=== PATIENT | female | born 1980 | race Caucasian/White ===

== ENCOUNTER 2017-04-11 10:23 | Outpatient (RCR) | payer MEDICAID, SELFPAY | END 2017-04-26 23:59 | LOC: NS 10:23 | PROVIDERS: Family Provider Family Medicine; PCP Family Medicine | DX: E66.9 Obesity, unspecified (principal); Z68.36 Body mass index [BMI] 36.0-36.9, adult; Z71.3 Dietary counseling and surveillance | CPT/HCPCS: 97803 ==

== ENCOUNTER 2017-05-22 09:30 | Outpatient (RCR) | payer MEDICAID, SELFPAY | END 2017-05-24 23:59 | LOC: NS 09:30 | PROVIDERS: Family Provider Family Medicine; PCP Family Medicine | DX: E66.9 Obesity, unspecified (principal); Z68.36 Body mass index [BMI] 36.0-36.9, adult; Z71.3 Dietary counseling and surveillance | CPT/HCPCS: 97803 ==

== ENCOUNTER → 2017-05-31 16:53 | Outpatient (CLI) | payer MEDICAID, SELFPAY ==
[2017-06-07 11:30] LABS: HPV HC, High Risk Negative (Negative)
[2017-06-07 11:37] LABS: HPV Reflexed? YES, CHARGE PATIENT
== END ==
PROVIDERS: Visit Provider Obstetrics & Gynecology
DX: Z12.4 Encounter for screening for malignant neoplasm of cervix (principal)
CPT/HCPCS: 87624; 88175; G0145

== ENCOUNTER 2017-06-20 09:30 | Outpatient (RCR) | payer MEDICAID, SELFPAY | END 2017-06-24 23:59 | LOC: NS 09:30 | PROVIDERS: Family Provider Family Medicine; PCP Family Medicine | DX: E66.9 Obesity, unspecified (principal); Z68.36 Body mass index [BMI] 36.0-36.9, adult; Z71.3 Dietary counseling and surveillance | CPT/HCPCS: 97803 ==

== ENCOUNTER 2017-07-17 09:30 | Outpatient (RCR) | payer MEDICAID, SELFPAY | END 2017-07-24 23:59 | LOC: NS 09:30 | PROVIDERS: Family Provider Family Medicine; PCP Family Medicine | DX: E66.9 Obesity, unspecified (principal); Z68.36 Body mass index [BMI] 36.0-36.9, adult; Z71.3 Dietary counseling and surveillance | CPT/HCPCS: 97803 ==

== ENCOUNTER 2017-08-14 09:30 | Outpatient (RCR) | payer MEDICAID, SELFPAY | END 2017-08-24 23:59 | LOC: NS 09:30 | PROVIDERS: Family Provider Family Medicine; PCP Family Medicine | DX: E66.9 Obesity, unspecified (principal); Z68.36 Body mass index [BMI] 36.0-36.9, adult; Z71.3 Dietary counseling and surveillance; M53.3 Sacrococcygeal disorders, not elsewhere classified | CPT/HCPCS: 72170; 72220; 97802; 97803 ==

== ENCOUNTER → 2017-08-14 10:23 | Outpatient (CLI) | payer MEDICAID, SELFPAY ==
--- NOTE | 2017-08-14 10:27 | RAD_ITS ---
STUDY: X-RAY - SACRUM/COCCYX REASON FOR EXAM: Female, 37 years old. Pelvic pain. TECHNIQUE: 4 view(s) of the sacrum and coccyx were obtained. COMPARISON: None. FINDINGS: Normal bilateral sacroiliac joints. Normal visualized sacral ala and fused sacral bodies. There is an anterior angulation of the coccygeal segments. Normal coccygeal segments. This space narrowing at the L5-S1 level. IUD is seen within the pelvis. RAD/Sacrum-Coccyx min 2 Views IMPRESSION: No acute abnormality is seen. An IUD is seen within the pelvis. Electronically Signed: José Miguel Gabriel MD at 9:52 EDT Tel [phone], Service support ,
--- NOTE | 2017-08-14 10:27 | RAD_ITS ---
STUDY: X-RAY - PELVIS REASON FOR EXAM: Female, 37 years old. Pelvic pain and sacral pain. TECHNIQUE: One view of the pelvis was obtained. COMPARISON: None. FINDINGS: There is a non-specific bowel gas pattern. IUD is seen within the pelvis. There is narrowing with cortical sclerosis and osteophyte formation of the sacroiliac joint consistent with degenerative osteoarthritic changes. Normal visualized bilateral superior and inferior pubic rami. Normal pubic symphysis. Normal ischial tuberosities. Normal visualized right femoral head. Normal right acetabulum. Normal right hip joint. Normal visualized left femoral head. Normal left acetabulum. Normal left hip joint. RAD/Pelvis 1 or 2 Views IMPRESSION: Degenerative changes of the sacroiliac joints worse on the left side. IUD is seen within the pelvis. Electronically Signed: José Miguel Gabriel MD at 15:49 EDT Tel [phone], Service support ,
== END ==
PROVIDERS: Family Provider Family Medicine; PCP Family Medicine
DX: M53.3 Sacrococcygeal disorders, not elsewhere classified (principal)
CPT/HCPCS: 72170; 72220

== ENCOUNTER 2017-09-06 08:16 | Outpatient (RCR) | payer MEDICAID, SELFPAY | END 2017-09-23 23:59 | LOC: NS 08:16 | PROVIDERS: Family Provider Family Medicine; PCP Family Medicine | DX: E66.9 Obesity, unspecified (principal); Z68.36 Body mass index [BMI] 36.0-36.9, adult; Z71.3 Dietary counseling and surveillance | CPT/HCPCS: 97803 ==

== ENCOUNTER 2017-10-23 09:30 | Outpatient (RCR) | payer MEDICAID, SELFPAY | END 2017-10-24 23:59 | disposition home or self-care (01) | LOC: NS 09:30 | PROVIDERS: Family Provider Family Medicine; PCP Family Medicine | DX: E66.9 Obesity, unspecified (principal); Z68.36 Body mass index [BMI] 36.0-36.9, adult; Z71.3 Dietary counseling and surveillance | CPT/HCPCS: 97803 ==

== ENCOUNTER 2017-11-21 09:30 | Outpatient (RCR) | payer MEDICAID, SELFPAY | END 2017-11-24 23:59 | LOC: NS 09:30 | PROVIDERS: Family Provider Family Medicine; PCP Family Medicine | DX: E66.9 Obesity, unspecified (principal); Z68.36 Body mass index [BMI] 36.0-36.9, adult; Z71.3 Dietary counseling and surveillance | CPT/HCPCS: 97803 ==

== ENCOUNTER → 2017-11-29 13:47 | Outpatient (CLI) | payer MEDICAID, SELFPAY ==
[2017-12-06 12:12] LABS: HPV Reflexed? NOT INDICATED
== END ==
PROVIDERS: Visit Provider Obstetrics & Gynecology
DX: Z12.4 Encounter for screening for malignant neoplasm of cervix (principal); R87.610 Atypical squamous cells of undetermined significance on cytologic smear of cervix (ASC-US)
CPT/HCPCS: 88175; G0145

== ENCOUNTER 2017-12-19 09:00 | Outpatient (RCR) | payer MEDICAID, SELFPAY | END 2017-12-24 23:59 | LOC: NS 09:00 | PROVIDERS: Family Provider Family Medicine; PCP Family Medicine | DX: E66.9 Obesity, unspecified (principal); Z68.36 Body mass index [BMI] 36.0-36.9, adult; Z71.3 Dietary counseling and surveillance | CPT/HCPCS: 97803 ==

== ENCOUNTER 2018-01-16 09:00 | Outpatient (RCR) | payer MEDICAID, SELFPAY | END 2018-01-24 23:59 | LOC: NS 09:00 | PROVIDERS: Family Provider Family Medicine; PCP Family Medicine | DX: E66.9 Obesity, unspecified (principal); Z68.36 Body mass index [BMI] 36.0-36.9, adult; Z71.3 Dietary counseling and surveillance | CPT/HCPCS: 97802; 97803 ==

== ENCOUNTER → 2018-01-18 11:55 | Outpatient (CLI) | payer MEDICAID, SELFPAY ==
--- NOTE | 2018-01-18 12:17 | RAD_ITS ---
STUDY: X-RAY - LUMBAR SPINE REASON FOR EXAM: Female, 37 years old. Acute low back pain. TECHNIQUE: 12/15/2014 view(s) of the lumbar spine were obtained. COMPARISON: None FINDINGS: Normal lumbar lordosis. There is no substantial scoliosis. There is a normal alignment of the vertebrae. Again seen is transitional vertebrae at S1. Normal vertebral bodies and endplates. Stable degenerative disc disease at S1-S2. Otherwise normal disc space heights. There is no demonstrated fracture. The soft tissue structures are unremarkable. RAD/Lumbar Spine 2 or 3 Views IMPRESSION: No change or acute abnormality. Electronically Signed: Jhonatan Saunders MD at 19:15 EDT , Service support ,
== END ==
DX: M54.5 Low back pain (principal)
CPT/HCPCS: 72100

== ENCOUNTER 2018-01-30 09:58 | Outpatient (RCR) | payer MEDICAID, SELFPAY | END 2018-02-23 23:59 | LOC: NS 09:58 | DX: E66.9 Obesity, unspecified (principal); Z68.36 Body mass index [BMI] 36.0-36.9, adult; Z71.3 Dietary counseling and surveillance | CPT/HCPCS: 97803 ==

== ENCOUNTER 2018-02-09 09:00 | Outpatient (RCR) | payer MEDICAID, SELFPAY ==
--- NOTE | 2018-01-09 14:00 | HP.PTEVAL_ITS ---
Patient's Visit Information ROJAS CHOUDHARY is a 37 year old F referred to Physical Therapy by Eliana Bolanos DO with a diagnosis of LBP. Date of Evaluation: 01/09/18 Physical Therapist: Jeremie Acuña PT, - Visit Plan Frequency: 2-3x /Week Duration: 4 Weeks Plan: Postural edu, REIL, core stab ex's, and HEP - Subjective Subjective: Pt reports her LB has been sore for one month. Pt reports she helped her carry a treadmill in the house, and her back has been sore since. Pt reports she went to the foot doctor 2 weeks ago, and had lifts put in her shoes. Pt reports the pain has been worse ever since. Pt reports she has had xrays in the past which revealed OA throughout the spine. Pt reports occasional R glute radiculopathy if she straightens out her L leg. Pt notes sleep difficulty secondary to pain. Pt reports prolonged standing and sitting increases her pain. sitting up straight also increases her pain. 5/10 pain sitting her at rest, 9/10 at worst - Pain LBP Pain Intensity (Out of 10): 5 Pain Intensity Range: 9 - Objective Neuro: B LE sensation is WNL to light touch. B patellar reflex= 2/3. MMT: R hip flexion 3/5 throughout. All other B LE MMT= 5/5 throughout. ROM: Pt is mederately limited with L/S ext which provokes pain. All other movements are WNL. Repeated movements: Repeated flexion in standing 10x3 has NE on pain. Repeated ext in standing 10x3 - Goals Goal 1:: Decrease LBP x 50% to aid with sleep Goal Time Frame: 4-6 Weeks Goal 2:: Increase L/S ext ROM x 1 grade to aid with decreasing LBP Goal Time Frame: 4-6 Weeks Goal 3:: Decrease the F and I of R glute radiculopathy by 50% to aid with increasing holli for standing Goal Time Frame: 4-6 Weeks Goal 4:: I with HEP Goal Time Frame: 4-6 Weeks - Rehabilitation Potential Physical Therapy Diagnosis: Pt has LBP, decreased L/S ROM, and diff with sleep secondary to a L/S disc derrangement Rehabilitation Potential: Good - Anticipated Interventions Patient/Client Instruction: Educate patient on: Condition, Plan of Care For the Purpose of:: To improve self management Therapeutic Exercise to Include: Strength training, Endurance training, Body mechanics, Postural training, Dynamic Lumbar Stabilization, Duy Exercises For the Purpose of:: To decrease pain, To increase ROM, To improve muscle performance and motor function Cryotherapy (ice pack, ice massage): Yes Thermo therapy (hot pack): Yes For the Purpose of:: To decrease pain Thank you for the opportunity to evaluate your patient. For Medicare and Medicare HMO plans, please review the plan of care and approve it. It will need to be FAXED BACK to us at [phone] for Medicare purposes. Please let me know if there are questions or concerns regarding this plan of care. Physician Signature: __Date:
--- NOTE | 2018-04-17 14:40 | HP.PT.NRP ---
HP - Discharge Summary (1) - Patient Information ROJAS CHOUDHARY was seen in my office for initial evaluation on 01/09/18. The following Plan of Care was established for this patient: Initial Frequency: 2-3x /Week Initial Duration: 4 Weeks - Anticipated Interventions Patient/Client Instruction: Educate patient on: Condition, Plan of Care For the Purpose of:: To improve self management Therapeutic Exercise to Include: Strength training, Endurance training, Body mechanics, Postural training, Dynamic Lumbar Stabilization, Duy Exercises For the Purpose of:: To decrease pain, To increase ROM, To improve muscle performance and motor function Cryotherapy (ice pack, ice massage): Yes Thermo therapy (hot pack): Yes For the Purpose of:: To decrease pain This patient was last seen in our office . Pertinent comments regarding their Physical therapy will appear below: Pt was treated for 14 PT visits for her LBP through the date of 02/09/18. Pt has not returned through todays date and is therefore discontinued at this time. At this point I will be discontinuing this patient from physical therapy. I would be happy to see this patient again in the future if found appropriate by the physician. Thank you! Jeremie Acuña, PT, ATC
== END 2018-02-09 19:00 | disposition home or self-care (01) ==
LOC: PT 09:00
DX: M54.5 Low back pain (principal); E66.9 Obesity, unspecified; Z68.35 Body mass index [BMI] 35.0-35.9, adult; Z71.3 Dietary counseling and surveillance
CPT/HCPCS: 97110; 97162; 97803

== ENCOUNTER 2018-03-13 09:30 | Outpatient (RCR) | payer MEDICAID, SELFPAY | END 2018-03-26 23:59 | LOC: NS 09:30 | DX: E66.9 Obesity, unspecified (principal); Z68.35 Body mass index [BMI] 35.0-35.9, adult; Z71.3 Dietary counseling and surveillance | CPT/HCPCS: 97803 ==

== ENCOUNTER 2018-04-17 11:30 | Outpatient (RCR) | payer MEDICAID, SELFPAY | END 2018-04-26 23:59 | LOC: NS 11:30 | DX: E66.9 Obesity, unspecified (principal); Z68.35 Body mass index [BMI] 35.0-35.9, adult; Z71.3 Dietary counseling and surveillance | CPT/HCPCS: 97803 ==

== ENCOUNTER 2018-07-03 12:17 | Outpatient (RCR) | payer MEDICAID, SELFPAY | END 2018-07-24 23:59 | LOC: NS 12:17 | DX: E66.9 Obesity, unspecified (principal); Z68.35 Body mass index [BMI] 35.0-35.9, adult; Z71.3 Dietary counseling and surveillance | CPT/HCPCS: 97803 ==

== ENCOUNTER → 2018-09-06 13:31 | Outpatient (CLI) | payer MEDICAID, SELFPAY ==
[2018-09-12 11:31] LABS: HPV Reflexed? NOT INDICATED
== END ==
PROVIDERS: Visit Provider Obstetrics & Gynecology
DX: Z12.4 Encounter for screening for malignant neoplasm of cervix (principal)
CPT/HCPCS: 88175; G0145

== ENCOUNTER → 2019-09-19 14:41 | Outpatient (CLI) | payer MEDICAID, SELFPAY | PROVIDERS: Visit Provider Obstetrics & Gynecology | DX: Z12.4 Encounter for screening for malignant neoplasm of cervix (principal); Z11.3 Encounter for screening for infections with a predominantly sexual mode of transmission ==

== ENCOUNTER 2020-01-14 13:14 | Outpatient (RCR) | payer MEDICAID, SELFPAY | END 2020-01-14 23:59 | disposition home or self-care (01) | LOC: NS 13:14 | DX: Z71.3 Dietary counseling and surveillance (principal); E66.01 Morbid (severe) obesity due to excess calories; Z68.42 Body mass index [BMI] 45.0-49.9, adult | CPT/HCPCS: 97802 ==

== ENCOUNTER 2024-03-13 08:39 | Day surgery (SDC) | payer MEDICAID, SELFPAY ==
[2024-03-13] VITALS (7 sets, daily range): BP systolic 105–129; BP diastolic 64–80; PULSE 70–85; RESP 14–16; TEMP 35.9–36.4; O2SAT 95–100; BMI 46.7
--- NOTE | 2024-03-13 08:47 | PCM.PRE.AN2 ---
ASA Classification* ASA Classification ASA Classification: 2 Assessment & Plan Anesthesia* Anesthesia Assessment Anesthesia Assessment: Discussed sedation and/or anesthesia options, risks, benefits, and alternatives with patient/parents/legal guardian/POA. Questions invited. The patient/parents/legal guardian/POA seems to understand and agrees to proceed with anesthesia plan. Reviewed the physical assessment, medical history, allergy history and patient home medications list prior to surgery/procedure/anesthetic and documented any changes. Performed airway and anesthesia risk assessments. Anesthesia Type Anesthesia Type: MAC Anesthesia Focused Assessment* Airway Assessment Mouth opens: >3 cm Mallampati Score: II Focused Labs Anesthesia Preop lab: CBC WBC 5.1 K/mm3 (4.4-11.0) 05/07/15 09:34 RBC 5.08 M/mm3 (4.2-5.4) 05/07/15 09:34 Hgb 15.1 g/dl (12.0-15.0) H 05/07/15 09:34 Hct 46.0 % (37-47) 05/07/15 09:34 Plt Count 221 K/mm3 (150-450) 05/07/15 09:34 CHEMISTRY Potassium 3.8 mmol/L (3.5-5.1) 05/07/15 09:34 Sodium 140 mmol/L (136-145) 05/07/15 09:34 BUN 8 mg/dL (7-18) 05/07/15 09:34 Creatinine 0.92 mg/dL (0.55-1.20) 05/07/15 09:34 Glucose 101 mg/dL (70-110) 05/07/15 09:34 POC Glucose 84 mg/dL (70-110) 09/01/14 06:19 TSH 1.28 uIU/mL (0.358-3.74) 05/06/15 14:52 COAG PT 11.9 SECONDS (11.7-14.9) 09/01/14 05:55 HCG, Quant < 1 mIU/mL (<9 non-preg) 07/26/12 13:17 Urine Test Positive Negative H 12/30/13 10:50 Pre-Assessment Diagnosis/Proposed Procedure Planned Operative Procedure(s): CSCOPE OA Anesthesia History Anesthesia History - scientific informatics leader: Anesthesia History - scientific informatics leader Hx Hospitalization No 03/11/24 15:14 Any Problems With Anesthesia No 03/11/24 15:14 Cholinesterase deficiency No 03/11/24 15:14 You/Your Family Experience No 03/11/24 15:14 fever (hyperthermia) with Relationship Recent Exposure to Contagious No 12/30/13 11:01 Disease Does patient have nerve No 03/11/24 15:14 stimulator Patient instructed to have device shut off --Does patient have Pacemaker or ICD? When Was Last Pacemaker Check QUESTION #4 FULL TEXT: You/Your Family Experience fever (hyperthermia) with Anesthesia Last Oral Intake Last Oral intake: Last Oral Intake NPO since Meds taken in AM with sips of water? Meds patient instructed to take am of surgery PONV PONV - scientific informatics leader: PONV - scientific informatics leader Female Yes 03/11/24 15:14 HX of Motion Sickness No 03/11/24 15:14 HX of N/V After Surgery No 03/11/24 15:14 Non-Smoker Yes 03/11/24 15:14 Duration of Surgery greater No 03/11/24 15:14 than 60 minutes Number of Risk Factors 2 03/11/24 15:14 PONV Score Moderate Risk 03/11/24 15:14 Height & Weight Height & Weight: Anesthesia: Height & Weight Height 5 ft 10.5 in 01/25/24 13:23 Respiratory Assessment Respiratory Assessment - scientific informatics leader: Respiratory Tract Infection Hx - scientific informatics leader Hx Respiratory Tract Infection No 03/11/24 15:14 STOP Sleep Apnea STOP Sleep Apnea - scientific informatics leader: STOP Sleep Apnea - scientific informatics leader Hx Hypertension Yes: NO MEDS FOR 20 YRS 03/11/24 15:14 Hx Sleep Apnea No 03/11/24 15:14 CPAP No 12/26/13 09:17 BIPAP No 12/26/13 09:17 Do you snore loudly (louder No 03/11/24 15:14 than talking or can be heard Do you often feel tired/ Yes 03/11/24 15:14 fatigued/ sleepy during daytime? Has anyone observed you stop No 03/11/24 15:14 breathing during sleep? STOP Results Positive 03/11/24 15:14 QUESTION #5 FULL TEXT : Do you snore loudly (louder than talking or can be heard through closed doors)? 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 Specify any problems Hx of Preganancy in last 3 No 03/11/24 15:14 Months Nurse Filling Out Transfusion DSCHRIBER 03/11/24 15:14 & Questions: Date: 03/11/24 03/11/24 15:14 Time: 15:16 03/11/24 15:14 Patient unable to answer at this time (ie. confused, unrespo /Reproduction History /Reproductive History - scientific informatics leader: /Reproductive Hx- scientific informatics leader Hx Now No 03/11/24 15:14 Gestational Age (in weeks): EDC: Hx Hx Para Hx Section SAB No 03/11/24 15:14 PFSH Medical History Wears contact lenses Diabetes Arthritis Low iron Injury of back Back pain Heartburn Non-smoker Shortness of breath on exertion History of pain when walking Hypertension Sacralization of lumbar vertebra Anxiety PAC (premature atrial contraction) Moderate recurrent major depression Hyperlipidemia Home Medications ?Medication ?Instructions ?Recorded ?Last Taken ?Type ferrous sulfate 325 mg (65 mg 325 mg PO DAILY@0800 08/11/14 03/10/24 History iron) tablet acetaminophen 650 mg 1,300 mg PO Q8H 01/25/24 Unknown History tablet,extended release (Arthritis Pain Relief (acetaminophen) ER) cholecalciferol (vitamin D3) 50 50 mcg PO QDAY 01/25/24 Unknown History mcg (2,000 unit) capsule fexofenadine 60 mg tablet (Nakia 60 mg PO QDAY 01/25/24 Unknown History Allergy) ibuprofen 200 mg tablet 200 mg PO Q6H PRN pain 01/25/24 Unknown History levonorgestrel (Mirena) 1 device intrauterine ONCE 01/25/24 Unknown History melatonin 5 mg tablet 5 mg PO HS 01/25/24 Unknown History multivitamin (Daily Multi-Vitamin 1 tab PO QAM 01/25/24 Unknown History tablet) nystatin 100,000 unit/gram topical 1 applic topical BID PRN SKIN 01/25/24 Unknown History powder vortioxetine 20 mg tablet 20 mg PO QDAY 01/25/24 Unknown History (Trintellix) Allergy/AdvReac Type Severity Reaction Status Date / Time azithromycin (From Zithromax) Allergy Rash Verified 03/11/24 15:13 Family History Father Diabetes Heart disease Mother Hypertension Arthritis Surgical History Hx of section Hx of cholecystectomy History of gastric bypass Hx of knee surgery Hx of carpal tunnel repair Social History household members: spouse and children current occupational status: unemployed Smoking Status: Never smoker alcohol intake: never substance use type: does not use Review of Systems (Anesthesia) ROS Narrative System reviewed and no additional complaints, except as documented.
--- NOTE | 2024-03-13 09:04 | PCM.HP.STD ---
HPI - General General Date of Admission: 03/13/24 Date of Service: 03/13/24 Chief Complaint: Screening colonoscopy HPI Narrative ROJAS CHOUDHARY, is a 44 F who presents today for screening colonoscopy. She has never had a colonoscopy in the past. She is not having abdominal pain, cramping, chest pain or shortness of breath. She does not take any medicines on a daily basis. FORMERLY [facility] Medical History Wears contact lenses Diabetes Arthritis Low iron Injury of back Back pain Heartburn Non-smoker Shortness of breath on exertion History of pain when walking Hypertension Sacralization of lumbar vertebra Anxiety PAC (premature atrial contraction) Moderate recurrent major depression Hyperlipidemia Home Medications ?Medication ?Instructions ?Recorded ?Last Taken ?Type ferrous sulfate 325 mg (65 mg 325 mg PO DAILY@0800 08/11/14 03/10/24 History iron) tablet acetaminophen 650 mg 1,300 mg PO Q8H 01/25/24 03/13/24 History tablet,extended release (Arthritis Pain Relief (acetaminophen) ER) cholecalciferol (vitamin D3) 50 50 mcg PO QDAY 01/25/24 Unknown History mcg (2,000 unit) capsule fexofenadine 60 mg tablet (Nakia 60 mg PO QDAY 01/25/24 Unknown History Allergy) ibuprofen 200 mg tablet 200 mg PO Q6H PRN pain 01/25/24 Unknown History levonorgestrel (Mirena) 1 device intrauterine ONCE 01/25/24 Unknown History melatonin 5 mg tablet 5 mg PO HS 01/25/24 Unknown History multivitamin (Daily Multi-Vitamin 1 tab PO QAM 01/25/24 Unknown History tablet) nystatin 100,000 unit/gram topical 1 applic topical BID PRN SKIN 01/25/24 Unknown History powder vortioxetine 20 mg tablet 20 mg PO QDAY 01/25/24 Unknown History (Trintellix) Allergy/AdvReac Type Severity Reaction Status Date / Time azithromycin (From Zithromax) Allergy Rash Verified 03/13/24 08:55 Family History Father Diabetes Heart disease Mother Hypertension Arthritis Surgical History Hx of section Hx of cholecystectomy History of gastric bypass Hx of knee surgery Hx of carpal tunnel repair Social History household members: spouse and children current occupational status: unemployed Smoking Status: Never smoker alcohol intake: never substance use type: does not use ROS Constitutional Constitutional: Denies fatigue, fever(s), poor appetite, weight gain or weight loss Gastrointestinal Gastrointestinal: Denies belching, bloating, change in bowel habits, change in stool character, chewing difficulty, coffee ground emesis, constipation, cramping, diarrhea, dyspepsia, dysphagia, early satiety, excessive flatus, fecal incontinence, heartburn, hematemesis, hematochezia, hemorrhoids, loose stools, melena, nausea, odynophagia, rectal bleeding, tenesmus, vomiting or weight changes Vital Signs Vital Signs Vital Signs: 03/13/24 08:56 03/13/24 08:56 Temperature 96.6 F L Temperature Source Temporal Pulse Rate 85 Respiratory Rate 16 Respiratory Pattern Normal Blood Pressure 129/80 H Blood Pressure Mean 96 Blood Pressure Source Monitor Blood Pressure Position Semi-Fowlers Blood Pressure Location Right Forearm Pulse Ox 100 Oxygen Delivery Method Room Air Weight Weight: 326 lb 4.546 oz Body Mass Index (BMI) 46.7 Physical Exam Const alert, oriented x3, no apparent distress and healthy appearing General Appearance: cooperative GI normal to inspection, nondistended, normoactive bowel sounds, soft to palpation, non-tender and non-distended Percussion: normal to percussion Rectal Exam: deferred Assessment & Plan Assessment/Plan (1) Encounter for screening for malignant neoplasm of colon: PLAN: She was explained alternatives, risk and benefits include not withstanding bleeding, infection, sepsis, perforation, need for surgery . She will have an ASA of 3.
[2024-03-13 09:08] LABS: Internal QC Validated? YES +Cl - CLEAR BKGD; Pregnancy, Urine Negative Negative
[2024-03-13 09:09] LABS: Record Kit Lot#,Urine Preg 872158
--- NOTE | 2024-03-13 09:30 | COLBX_PTH ---
PATIENT: ROJAS CHOUDHARY LOC: EN U#:[id number] AGE/SX: 44/F ROOM: RE03/13/[address]: Dr. Alphonso Churchill DO : 1980 BED: DIS: 03/13/2024 SPEC #: [id number] RECD: 03/13/24 10:19 STATUS: YUSRA REMaria #: [id number] YUNIEL: 03/13/24 09:[address]: Alphonso Churchill DEPT: SURGICAL PATHOLOGY RECD BY: Morena Her ENTERED: 03/13/24 11:32 SP TYPE: COLON BX OTHR DR: Dr. Eliana Bolanos DO Tissues: SPLENIC FLEXURE Procedures: Surgery Specimen Level IV HEADER OPERATION: Colonoscopy, polypectomy PRE-OP DIAGNOSIS: Encounter for screening for malignant neoplasm of colon TISSUE SUBMITTED: Splenic flexure polyp MICROSCOPIC DIAGNOSIS Colonic polyp at splenic flexure, biopsy: Cauterized fragments of colonic mucosa with hyperplastic change. AM 03/14/2024 COMMENT Case has been reviewed in consultation with Dr. Bauman who concurs with the above diagnosis. IDC:[id number] MICROSCOPIC DESCRIPTION Slides are reviewed. GROSS DESCRIPTION Received in fixative is one container labeled with the patient's name and designated Splenic flexure polyp. The specimen consists of multiple irregular fragments of light robbins soft tissue that in aggregate measure 1.0 x 0.3 x 0.1 cm. The specimen is totally submitted in one cassette. 03/13/2024 TC:5 CPT:11038
--- NOTE | 2024-03-13 09:39 | OP.CCLET_ITS ---
03/13/2024 Eliana Bolanos Re : Colonoscopy procedure for Deepa Arias Dear Luis Miguel This procedure was performed on Wednesday, March 13, 2024. My impressions and recommendations are as follows: Impressions : - One 8 mm polyp at the splenic flexure, removed with a hot snare. Resected and retrieved. - The examination was otherwise normal on direct and retroflexion views. Recommendations : - Discharge patient to home. - Resume previous diet. - Continue present medications. - Await pathology results. - Repeat colonoscopy in 5 years for surveillance. My findings are described in the full procedure note, which is enclosed. If I can be of further assistance, please feel free to contact me at . Sincerely, Alphonso Churchill, 03/13/2024 9:38:59 AM This report has been signed electronically.
--- NOTE | 2024-03-13 09:39 | OP.COLON_ITS ---
Patient Name: Deepa Arias Procedure Date: 03/13/2024 9:06 AM Date of : 1980 Age: 44 Procedure: Colonoscopy Indications: Screening for colorectal malignant neoplasm Providers: Alphonso Churchill DO Medicines: Monitored Anesthesia Care Patient Profile: This is a 44 year old female. Refer to note in patient chart for documentation of history and physical. Last Colonoscopy: none. The patient's first colonoscopy is today. Complications: No immediate complications. Procedure: Pre-Anesthesia Assessment: - Prior to the procedure, a History and Physical was performed, and patient medications and allergies were reviewed. The patient is competent. The risks and benefits of the procedure and the sedation options and risks were discussed with the patient. All questions were answered and informed consent was obtained. Patient identification and proposed procedure were verified by the physician in the pre-procedure area. Mental Status Examination: alert and oriented. Airway Examination: normal oropharyngeal airway and neck mobility. Respiratory Examination: clear to auscultation. CV Examination: normal. Prophylactic Antibiotics: The patient does not require prophylactic antibiotics. Prior Anticoagulants: The patient has taken no anticoagulant or antiplatelet agents except for NSAID medication. ASA Grade Assessment: II - A patient with mild systemic disease. After reviewing the risks and benefits, the patient was deemed in satisfactory condition to undergo the procedure. The anesthesia plan was to use monitored anesthesia care (MAC). Immediately prior to administration of medications, the patient was re-assessed for adequacy to receive sedatives. The heart rate, respiratory rate, oxygen saturations, blood pressure, adequacy of pulmonary ventilation, and response to care were monitored throughout the procedure. The physical status of the patient was re-assessed after the procedure. After I obtained informed consent, the scope was passed under direct vision. Throughout the procedure, the patient's blood pressure, pulse, and oxygen saturations were monitored continuously. The Colonoscope was introduced through the anus and advanced to the cecum, identified by appendiceal orifice and ileocecal valve. The colonoscopy was performed without difficulty. The patient tolerated the procedure well. The quality of the bowel preparation was adequate. The ileocecal valve, appendiceal orifice, and rectum were photographed. Scope In: 9:19:18 AM Scope Withdrawal Time 0 hours 9 minutes 19 seconds Scope Out: 9:34:22 AM Total Procedure Duration Time 0 hours 15 minutes 4 seconds Findings: The perianal and digital rectal examinations were normal. An 8 mm polyp was found in the splenic flexure. The polyp was sessile. The polyp was removed with a hot snare. Resection and retrieval were complete. Verification of patient identification for the specimen was done. Estimated blood loss was minimal. The exam was otherwise without abnormality on direct and retroflexion views. Impression: - One 8 mm polyp at the splenic flexure, removed with a hot snare. Resected and retrieved. - The examination was otherwise normal on direct and retroflexion views. Recommendation: - Discharge patient to home. - Resume previous diet. - Continue present medications. - Await pathology results. - Repeat colonoscopy in 5 years for surveillance. Procedure Code(s): --- Professional --- 78569, Colonoscopy, flexible; with removal of tumor(s), polyp(s), or other lesion(s) by snare technique CPT copyright 2021 [employer]. All rights reserved. The codes documented in this report are preliminary and upon wallpaper inspector review may be revised to meet current compliance requirements. Alphonso Churchill DO 03/13/2024 9:38:59 AM This report has been signed electronically. Number of Addenda: 0 Note Initiated On: 03/13/2024 9:06 AM
--- NOTE | 2024-03-13 09:45 | PCM.POST.ANE ---
Anesthesia: Postop Eval I Current Vital Signs Temperature: 97.2 F Pulse Rate: 72 Blood Pressure: 114/64 Respiratory Rate: 16 Pulse Ox: 96 Oxygen Delivery Method: Room Air Assessment Airway patent: Yes Spontaneous unlabored respirations: Yes Mental status: Asleep nausea: No Vomiting: No Anesthesia Complication: No Fluid Hydration Crystalloid volume administer (ml): 90 Total IV fluid infused: 90 Progress Note Anesthesia document: Postop Eval 1 completed: Yes
--- NOTE | 2024-03-13 11:00 | PCM.POSTANE2 ---
Anesthesia Postop Eval I Sum Postop Eval Completion status Anesthesia document: Postop Eval 1 completed: Yes Anesthesia Postop Eval I Summary Anesthesia Postop Eval I Summary: Anesthesia Postop Eval I: Assessment Summary Airway patent Yes 03/13/24 09:46 [email or web address] Spontaneous unlabored Yes 03/13/24 09:46 [email or web address] respirations Mental status Asleep 03/13/24 09:46 [email or web address] nausea No 03/13/24 09:46 [email or web address] Vomiting No 03/13/24 09:46 [email or web address] Anesthesia Postop Eval I: Fluid Summary Crystalloid volume administer 90 03/13/24 09:46 [email or web address] (ml) Colloids volume administered ( ml) Blood Product volume administered (ml) Total IV fluid infused 90 03/13/24 09:46 [email or web address] Anesthesia Postop Eval I: Summary Notes Anesthesia Complication No 03/13/24 09:46 [email or web address] Anesthesia Complication Comment: Post-operative progress note Anesthesia: Postop Eval II Evaluation Mental status: Awake Pain Level: 0 nausea: No Vomiting: No
== END 2024-03-13 10:34 | disposition home or self-care (01) ==
LOC: EN 08:41 → AC 08:43
PROVIDERS: Anesthesiology; Visit Provider Internal Medicine Gastroenterology
PROC: 0DJD8ZZ Inspection of Lower Intestinal Tract, Via Natural or Artificial Opening Endoscopic (ICD-10-PCS; CPT 45378; principal; 2024-03-13 09:25)
DX: Z12.11 Encounter for screening for malignant neoplasm of colon (principal); E11.9 Type 2 diabetes mellitus without complications; I10 Essential (primary) hypertension; E78.5 Hyperlipidemia, unspecified; K63.5 Polyp of colon
CPT/HCPCS: 45385; 81025; 88305; A4216; J2405